=== PATIENT | female | born 1975 ===

== ENCOUNTER 2016-09-22 20:23 | Emergency (ER) | payer OTHER, SELFPAY ==
[2016-09-22 20:23] VITALS: BMI 30.2
[2016-09-22 20:43] VITALS: PULSE 62; RESP 18; TEMP 97.9; O2SAT 99
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
[2016-09-22 22:56] VITALS: BP 141/85
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
== END 2016-09-22 22:55 | disposition home or self-care (01) ==
LOC: H.ER 20:23
DX: M79.601 Pain in right arm (principal); V03.10XA Pedestrian on foot injured in collision with car, pick-up truck or van in traffic accident, initial encounter; Y92.410 Unspecified street and highway as the place of occurrence of the external cause

== ENCOUNTER 2016-11-25 03:58 | Observation (INO) | payer OTHER, SELFPAY ==
[2016-11-25 03:58] VITALS: BMI 30.2
[2016-11-25] MEDS ORDERED: Sodium Chloride 0.9% 1,000 ML IV STA (04:12)
[2016-11-25 04:24] LABS: BASO # 0.1 K/uL (0.0-0.2); BASO % 0.6 % (0.0-2.0); EOS # 0.2 K/uL (0.0-0.7); EOS % 1.2 % (0.0-4.0); HEMATOCRIT 37.5 % (34.0-47.0); LYMPH # 3.7 K/uL (1.0-4.3); LYMPH % 28.4 % (20.0-40.0); MEAN CELL VOLUME 91.5 fl (81.0-99.0); MEAN CORPUSCULAR HEMOGLOBIN 30.8 pg (27.0-31.0); MEAN CORPUSCULAR HGB CONC 33.7 g/dL (33.0-37.0); MEAN PLATELET VOLUME 7.8 fl (7.2-11.7); MONO # 0.9 K/uL (0.0-0.8); MONO % 6.9 % (0.0-10.0); NEUT # 8.2 K/uL (1.8-7.0); NEUT % 62.9 % (50.0-75.0); RED CELL DISTRIBUTION WIDTH 13.1 % (11.5-14.5)
--- NOTE | 2016-11-25 04:26 | ED PDOC ---
HPI: Abdomen Time Seen by Provider: 11/25/16 04:03 Chief Complaint (Nursing): Abdominal Pain Chief Complaint (Provider): Abdominal Pain History Per: Patient History/Exam Limitations: no limitations Onset/Duration Of Symptoms: Hrs (x7) Current Symptoms Are (Timing): Still Present Location Of Pain/Discomfort: RUQ Quality Of Discomfort: Stabbing Associated Symptoms: Nausea, Vomiting. denies: Fever, Chills Additional Complaint(s): 41 year old female presents to ED with complaints of RUQ pain x9 hours and has no past medical history. (+) nausea and vomiting, (-) fever and chills. Notes that she has been having intermittent episodes of vomiting (food-colored). Describes the sensation of pain as stabbing. PCP: [facility] Past Medical History Reviewed: Historical Data, Nursing Documentation, Vital Signs Vital Signs: Last Vital Signs Temp 99.1 F 11/25/16 04:01 Pulse 101 H 11/25/16 04:01 Resp 16 11/25/16 04:01 BP 154/103 H 11/25/16 04:01 Pulse Ox 99 11/25/16 04:28 - Medical History PMH: Back Problems Denies: Chronic Kidney Disease - Surgical History Surgical History: (x3) - Family History Family History: States: Unknown Family Hx - Living Arrangements Living Arrangements: With Family - Social History Current smoker - smoking cessation education provided: No Ex-Smoker (has not smoked in the last 12 months): No Alcohol: None Drugs: Denies - Immunization History Hx Influenza Vaccination: No - Home Medications Home Medications: Ambulatory Orders Medication Instructions Recorded oxyCODONE/Acetaminophen [Percocet 1 ea PO Q8 #10 tab 04/03/16 5/325 mg Tab] Ibuprofen [Motrin Tab] 800 mg PO Q6H PRN #20 tab 09/22/16 traMADol [Ultram] 50 mg PO Q6H PRN #15 tab 09/22/16 - Allergies Allergies/Adverse Reactions: Allergies Allergy/AdvReac Type Severity Reaction Status Date / Time No Known Allergies Allergy Verified 10/29/15 13:43 Review of Systems ROS Statement: Except As Marked, All Systems Reviewed And Found Negative Constitutional: Negative for: Fever, Chills Gastrointestinal: Positive for: Nausea, Vomiting, Abdominal Pain (RUQ) Physical Exam - Reviewed Nursing Documentation Reviewed: Yes Vital Signs Reviewed: Yes - Physical Exam Appears: Positive for: Uncomfortable Skin: Positive for: Normal Color, Warm, Dry Eye Exam: Positive for: Normal appearance ENT: Positive for: Normal ENT Inspection Neck: Positive for: Normal Cardiovascular/Chest: Positive for: Regular Rate, Rhythm, Tachycardia Respiratory: Positive for: Normal Breath Sounds. Negative for: Respiratory Distress Gastrointestinal/Abdominal: Positive for: Soft, Tenderness (RUQ tenderness), Other ((+) Jewell's sign) Extremity: Positive for: Normal ROM. Negative for: Deformity Neurologic/Psych: Positive for: Alert, Oriented. Negative for: Motor/Sensory Deficits - Laboratory Results Result Diagrams: 11/25/16 04:22 11/25/16 04:22 - ECG O2 Sat by Pulse Oximetry: 99 (RA) Pulse Ox Interpretation: Normal Medical Decision Making Medical Decision Makin Initial impression: gallstone v cholecystitis v nephrolithiasis Initial plan: * Labs * Lipase * LFT * UPreg * UDip * Morphine 4mg IVP * NS IV * Zofran Inj 4mg IVP * UA * Re-eval Scribe Attestation: Documented by Kelsea Robles acting as a scribe for Greg Chang MD. Scribe Attestation: All medical record entries made by the Scribe were at my direction and personally dictated by me. I have reviewed the chart and agree that the record accurately reflects my personal performance of the history, physical exam, medical decision making, and the department course for this patient. I have also personally directed, reviewed, and agree with the discharge instructions and disposition. Disposition - Clinical Impression Clinical Impression: Abdominal pain - Patient ED Disposition Is Patient to be Admitted: Transfer of Care - Disposition Disposition: Transfer of Care Disposition Time: 07:00 Condition: STABLE Forms: xCloud (Albanian) Patient Signed Over To: Caity Romo Handoff Comments: pending U/S
[2016-11-25 04:51] LABS: BLOOD UREA NITROGEN 15 mg/dl (7-17); CARBON DIOXIDE 25 mmol/L (22-30); CHLORIDE 105 mmol/L (98-107); GFR AFRICAN-AMERICAN > 60; GLUCOSE,RANDOM 115 mg/dL (65-105); POTASSIUM 4.5 MMOL/L (3.6-5.0); SODIUM 139 mmol/l (132-148)
[2016-11-25 04:52] LABS: ALB/GLOB RATIO 1.3 (1.0-2.1); ALT/SGPT 53 U/L (9-52); AST/SGOT 34 U/L (14-36); BILIRUBIN,TOTAL 0.6 mg/dl (0.2-1.3); CALCIUM 9.1 mg/dL (8.4-10.2); TOTAL PROTEIN 7.8 G/DL (6.3-8.2)
[2016-11-25 04:53] LABS: ALKALINE PHOSPHATASE 86 U/L (38-126); LIPASE 166 U/L (23-300)
[2016-11-25] MEDS ORDERED: Iohexol 300 100 ML IJ ONE (05:39)
[2016-11-25] MEDS ORDERED: Sodium Chloride 0.9% 50 ML IV ONE (05:39)
--- NOTE | 2016-11-25 06:46 | CT ---
EXAM: CT Abdomen and Pelvis With Intravenous Contrast CLINICAL HISTORY: 41 years old, female; Pain; Abdominal pain; Localized; Right upper quadrant (ruq); Prior surgery; Surgery date: 6+ months; Surgery type: x 3; Additional info: Ruq pain TECHNIQUE: Axial computed tomography images of the abdomen and pelvis with intravenous contrast. All CT scans at this facility use one or more dose reduction techniques, viz.: automated exposure control; ma/kV adjustment per patient size (including targeted exams where dose is matched to indication; i.e. head); or iterative reconstruction technique. Coronal and sagittal reformatted images were created and reviewed. CONTRAST: 90 mL of [id number] administered intravenously. COMPARISON: CT - ABD PELVIS PO IV CONTRAST 05/13/2015 11:18:30 AM FINDINGS: Lower thorax: No acute findings. ABDOMEN: Liver: Unremarkable. No mass. Gallbladder and bile ducts: Unremarkable. No calcified stones. No ductal dilation. Pancreas: Unremarkable. No mass. No ductal dilation. Spleen: Unremarkable. No splenomegaly. Adrenals: Unremarkable. No mass. Kidneys and ureters: Unremarkable. No solid mass. No hydronephrosis. Stomach and bowel: There is no wall thickening or pericolonic stranding to suggest colitis. No obstruction. Appendix: A normal appendix is identified. PELVIS: Bladder: Unremarkable. No mass. Reproductive: Unremarkable as visualized. ABDOMEN and PELVIS: Intraperitoneal space: Unremarkable. No free air. No significant fluid collection. Bones/joints: No acute fracture. No dislocation. Soft tissues: Unremarkable. Vasculature: Unremarkable. No abdominal aortic aneurysm. Lymph nodes: Unremarkable. No enlarged lymph nodes. IMPRESSION: No acute findings.
--- NOTE | 2016-11-25 07:12 | ED PDOC ---
- Laboratory Results Result Diagrams: 11/25/16 04:22 11/25/16 04:22 - ECG O2 Sat by Pulse Oximetry: 99 (RA) Medical Decision Making Medical Decision Making: Received patient from Dr. Chang. Patient is pending abdominal US for RUQ colic 09:07 US gallbladder FINDINGS: LIVER: Measures 17.5 cm in length. Diffusely increased echogenicity of the liver parenchyma. Consistent with fatty infiltration. There is a rounded hypoechoic lesion in the right lobe of the liver, 1.9 x 1.9 x 2.2 cm. The borders are slightly irregular. This corresponds to a 2 cm rounded enhancing mass in the right hepatic lobe as seen on multiple prior MR examinations as well as CT examination dating back to 05/13/2015. No interval change in size. Low suspicion for malignancy but continued surveillance is advised. No other mass identified. No biliary ductal dilatation. This could represent focal fatty sparing but the possibility of a hepatic neoplasm must also be considered. Normal hepatopetal portal venous flow is demonstrated. GALLBLADDER: Unremarkable. No gallstones. COMMON BILE DUCT: Measures 7 mm. No stones. No dilatation. PANCREAS: Unremarkable as visualized. No mass. No ductal dilatation. OTHER FINDINGS: None . IMPRESSION: Fatty infiltration of the liver. 2 cm rounded mass in the right hepatic lobe unchanged compared to multiple prior MR and CT examinations dating back to 2015. Continued surveillance is advised. No evidence of cholelithiasis or cholecystitis. ----- Scribe Attestation: Documented by Justine Galo acting as a scribe for Caity Romo MD. Scribe Attestation: All medical record entries made by the Scribe were at my direction and personally dictated by me. I have reviewed the chart and agree that the record accurately reflects my personal performance of the history, physical exam, medical decision making, and the department course for this patient. I have also personally directed, reviewed, and agree with the discharge instructions and disposition. 9.15A Patient in severe pain again. US and CT unrevealing of acute process. Will medicate and obtain surgical consult. Disposition Doctor Will See Patient In The: Hospital - Clinical Impression Clinical Impression: Abdominal pain - POA Present On Arrival: None - Disposition Disposition: Hospitalized as Observation Patient Disposition Time: 11:15 Condition: STABLE
[2016-11-25 08:24] LABS: RBC URINE 3 /hpf (0-3); URINE BACTERIA RARE (<OCC); URINE BILIRUBIN NEGATIVE (NEGATIVE); URINE BLOOD NEGATIVE (NEGATIVE); URINE COLOR STRAW (YELLOW); URINE GLUCOSE (UA) NEG (Normal); URINE KETONE NEGATIVE (NEGATIVE); URINE LEUKOCYTE ESTERASE NEG Leu/uL (Negative); URINE PROTEIN NEGATIVE (NEGATIVE); URINE UROBILINOGEN 0.2-1.0 mg/dL (0.2-1.0); WBC URINE 2 /hpf (0-5)
--- NOTE | 2016-11-25 09:08 | US ---
HISTORY: RUQ pain COMPARISON: None. TECHNIQUE: Sonographic evaluation of the right upper quadrant of the abdomen. FINDINGS: LIVER: Measures 17.5 cm in length. Diffusely increased echogenicity of the liver parenchyma. Consistent with fatty infiltration. There is a rounded hypoechoic lesion in the right lobe of the liver, 1.9 x 1.9 x 2.2 cm. The borders are slightly irregular. This corresponds to a 2 cm rounded enhancing mass in the right hepatic lobe as seen on multiple prior MR examinations as well as CT examination dating back to 05/13/2015. No interval change in size. Low suspicion for malignancy but continued surveillance is advised. No other mass identified. No biliary ductal dilatation. This could represent focal fatty sparing but the possibility of a hepatic neoplasm must also be considered. Normal hepatopetal portal venous flow is demonstrated. GALLBLADDER: Unremarkable. No gallstones. COMMON BILE DUCT: Measures 7 mm. No stones. No dilatation. PANCREAS: Unremarkable as visualized. No mass. No ductal dilatation. OTHER FINDINGS: None . IMPRESSION: Fatty infiltration of the liver. 2 cm rounded mass in the right hepatic lobe unchanged compared to multiple prior MR and CT examinations dating back to 05/13/2015. Continued surveillance is advised. No evidence of cholelithiasis or cholecystitis.
--- NOTE | 2016-11-25 10:07 | CP.PCM.CON ---
<Ole Martinez - Last Filed: 11/25/16 11:17> History of Present Illness - History of Present Illness History of Present Illness: General Surgery Consult note CC: RUQ pain 41F no relevant PMH presented to [facility] with sharp continuos RUQ pain that started late last night. had a similar episode 3 days ago that resolved on its own. Pain is slightly better after morphine in the ED. Currently ranks pain 8/ 10. Pt feels distended. Pt positive for nausea, NBNB vomiting, multiple episodes non-bloody diarrhea. Denies current CP/SOB F/C BRBPR, numbness tingling in the extremities LMP: earlier this month PMH: pre-diabetic PSH: x2 ALL: NKDA SocialHx: occasional ETOH, denies tobacco, or drug use Review of Systems - Review of Systems All systems: reviewed and no additional remarkable complaints except - Constitutional Constitutional: As Per HPI Past Patient History - Past Medical History & Family History Past Medical History?: No - Past Social History Alcohol: None Drugs: Denies - PULMONARY Hx Respiratory Disorders: No - NEUROLOGICAL Hx Neurological Disorder: No - HEENT Hx HEENT Problems: No - RENAL Hx Chronic Kidney Disease: No - ENDOCRINE/METABOLIC Hx Endocrine Disorders: No - HEMATOLOGICAL/ONCOLOGICAL Hx Blood Disorders: No - INTEGUMENTARY Hx Dermatological Problems: No - MUSCULOSKELETAL/RHEUMATOLOGICAL Hx Musculoskeletal Disorders: No - GASTROINTESTINAL Hx Gastrointestinal Disorders: No - GENITOURINARY/GYNECOLOGICAL Hx Genitourinary Disorders: No - PSYCHIATRIC Hx Psychophysiologic Disorder: No Hx Substance Use: No - SURGICAL HISTORY Hx Surgeries: Yes Hx Section: Yes (x3) Other/Comment: ovarian cyst removal - ANESTHESIA Hx Anesthesia: Yes Hx Anesthesia Reactions: No Meds Allergies/Adverse Reactions: Allergies Allergy/AdvReac Type Severity Reaction Status Date / Time No Known Allergies Allergy Verified 10/29/15 13:43 Physical Exam - Constitutional Appears: Non-toxic, No Acute Distress - Head Exam Head Exam: ATRAUMATIC - Eye Exam Eye Exam: EOMI. absent: Scleral icterus - ENT Exam ENT Exam: Mucous Membranes Moist - Respiratory Exam Respiratory Exam: NORMAL BREATHING PATTERN. absent: Accessory Muscle Use, Respiratory Distress - Cardiovascular Exam Cardiovascular Exam: Tachycardia, +S1, +S2 - GI/Abdominal Exam GI & Abdominal Exam: Distended, Normal Bowel Sounds, Soft, Tenderness - Extremities Exam Extremities exam: Negative for: calf tenderness - Back Exam Back exam: absent: CVA tenderness (L), CVA tenderness (R) - Neurological Exam Neurological exam: Alert, Oriented x3 - Skin Skin Exam: Dry, Warm Results - Vital Signs Recent Vital Signs: Last Vital Signs Temp 98.1 F 11/25/16 07:59 Pulse 56 L 11/25/16 07:59 Resp 16 11/25/16 07:59 BP 107/62 11/25/16 07:59 Pulse Ox 99 11/25/16 09:27 - Labs Result Diagrams: 11/25/16 04:22 11/25/16 04:22 Labs: Laboratory Results - last 24 hr 11/25/16 11/25/16 11/25/16 04:22 04:22 08:02 WBC 13.0 H D RBC 4.10 Hgb 12.6 Hct 37.5 MCV 91.5 D MCH 30.8 MCHC 33.7 RDW 13.1 Plt Count 298 MPV 7.8 Neut % (Auto) 62.9 Lymph % (Auto) 28.4 Barry % (Auto) 6.9 Eos % (Auto) 1.2 Baso % (Auto) 0.6 Neut # 8.2 H Lymph # 3.7 Barry # 0.9 H Eos # 0.2 Baso # 0.1 Sodium 139 Potassium 4.5 Chloride 105 Carbon Dioxide 25 Anion Gap 14 BUN 15 Creatinine 0.7 Est GFR ( Amer) > 60 Est GFR (Non-Af Amer) > 60 Random Glucose 115 H Calcium 9.1 Total Bilirubin 0.6 Direct Bilirubin 0.4 AST 34 ALT 53 H Alkaline Phosphatase 86 Total Protein 7.8 Albumin 4.4 Globulin 3.4 Albumin/Globulin Ratio 1.3 Lipase 166 Urine Color Straw Urine Clarity Cloudy Urine pH 6.0 Ur Specific [place] 1.023 Urine Protein Negative Urine Glucose (UA) Neg Urine Ketones Negative Urine Blood Negative Urine Nitrate Negative Urine Bilirubin Negative Urine Urobilinogen 0.2-1.0 Ur Leukocyte Esterase Neg Urine RBC (Auto) 3 Urine Microscopic WBC 2 Ur Squamous Epith Cells 9 H Urine Bacteria Rare Assessment & Plan - Assessment and Plan (Free Text) Assessment: 41F Abdominal pain over the last day Plan: - NPO - IVF - pain control - clinically no signs of acute cholecystitis, most likely gastroenteritis - will follow Pt S&E and d/w Surgical attending Ole Martinez PGY1 <Zi Kwong - Last Filed: 11/25/16 11:24> History of Present Illness - History of Present Illness History of Present Illness: Patient was seen and examined at the bedside. Agree with resident's note above. Physical Exam - GI/Abdominal Exam GI & Abdominal Exam: Distended Additional comments: tender on the right side, ND, BS+, no rebound, no guarding, well healed scar from prior Results - Vital Signs Recent Vital Signs: Last Vital Signs Temp 98.1 F 11/25/16 07:59 Pulse 56 L 11/25/16 07:59 Resp 16 11/25/16 07:59 BP 107/62 11/25/16 07:59 Pulse Ox 99 11/25/16 09:27 - Labs Result Diagrams: 11/25/16 04:22 11/25/16 04:22 Labs: Laboratory Results - last 24 hr 11/25/16 11/25/16 11/25/16 04:22 04:22 08:02 WBC 13.0 H D RBC 4.10 Hgb 12.6 Hct 37.5 MCV 91.5 D MCH 30.8 MCHC 33.7 RDW 13.1 Plt Count 298 MPV 7.8 Neut % (Auto) 62.9 Lymph % (Auto) 28.4 Barry % (Auto) 6.9 Eos % (Auto) 1.2 Baso % (Auto) 0.6 Neut # 8.2 H Lymph # 3.7 Barry # 0.9 H Eos # 0.2 Baso # 0.1 Sodium 139 Potassium 4.5 Chloride 105 Carbon Dioxide 25 Anion Gap 14 BUN 15 Creatinine 0.7 Est GFR ( Amer) > 60 Est GFR (Non-Af Amer) > 60 Random Glucose 115 H Calcium 9.1 Total Bilirubin 0.6 Direct Bilirubin 0.4 AST 34 ALT 53 H Alkaline Phosphatase 86 Total Protein 7.8 Albumin 4.4 Globulin 3.4 Albumin/Globulin Ratio 1.3 Lipase 166 Urine Color Straw Urine Clarity Cloudy Urine pH 6.0 Ur Specific [place] 1.023 Urine Protein Negative Urine Glucose (UA) Neg Urine Ketones Negative Urine Blood Negative Urine Nitrate Negative Urine Bilirubin Negative Urine Urobilinogen 0.2-1.0 Ur Leukocyte Esterase Neg Urine RBC (Auto) 3 Urine Microscopic WBC 2 Ur Squamous Epith Cells 9 H Urine Bacteria Rare - Imaging and Cardiology CT scan - abdomen Status: Image reviewed by me, Report reviewed by me
[2016-11-25] MEDS: Lactated Ringer's 1,000 ML IV SCH (12:32)
--- NOTE | 2016-11-25 13:32 | CP.PCM.HP ---
History of Present Illness - History of Present Illness History of Present Illness: 41yo F with PMHx hepatic lesion admitted for intractable RUQ abd pain. RUQ abd pain x2 days, sharp, constant, 8/10, radiation to back, a/w nausea and NB/NB vomitus x4 over 1 day, a/w diarrhea x4 today improving. LMP 10/2016. PMH: pre-diabetic, hepatic lesion and fibrolipoma PSH: x2, abd wall mass 05/30/15 ALL: NKDA Social Hx: denies tobacco, ETOH, or drug use PMD: [facility] ED course VSS CBC leukocytosis neg urine preg lipase WNL CT abd/pelvis-unremarkable, no abnl GB findings US abd-fatty infiltration. unchanged/stable 2cm right hepatic lobe mass. no cholelithiasis or cholecysitis surgery c/s Present on Admission - Present on Admission Any Indicators Present on Admission: No Review of Systems - Review of Systems All systems: reviewed and no additional remarkable complaints except - Gastrointestinal Gastrointestinal: Abdominal Pain, Diarrhea, Nausea, Vomiting Past Patient History - Past Medical History & Family History Past Medical History?: No - Past Social History Alcohol: None Drugs: Denies - PULMONARY Hx Respiratory Disorders: No - NEUROLOGICAL Hx Neurological Disorder: No - HEENT Hx HEENT Problems: No - RENAL Hx Chronic Kidney Disease: No - ENDOCRINE/METABOLIC Hx Endocrine Disorders: No - HEMATOLOGICAL/ONCOLOGICAL Hx Blood Disorders: No - INTEGUMENTARY Hx Dermatological Problems: No - MUSCULOSKELETAL/RHEUMATOLOGICAL Hx Musculoskeletal Disorders: No - GASTROINTESTINAL Hx Gastrointestinal Disorders: No - GENITOURINARY/GYNECOLOGICAL Hx Genitourinary Disorders: No - PSYCHIATRIC Hx Psychophysiologic Disorder: No Hx Substance Use: No - SURGICAL HISTORY Hx Surgeries: Yes Hx Section: Yes (x3) Other/Comment: ovarian cyst removal - ANESTHESIA Hx Anesthesia: Yes Hx Anesthesia Reactions: No Meds Allergies/Adverse Reactions: Allergies Allergy/AdvReac Type Severity Reaction Status Date / Time No Known Allergies Allergy Verified 11/25/16 15:10 Physical Exam - Constitutional Appears: Non-toxic, No Acute Distress - Head Exam Head Exam: ATRAUMATIC, NORMAL INSPECTION - Eye Exam Eye Exam: Normal appearance - ENT Exam ENT Exam: Mucous Membranes Moist - Neck Exam Neck exam: Positive for: Full Rom, Normal Inspection - Respiratory Exam Respiratory Exam: Clear to Auscultation Bilateral - Cardiovascular Exam Cardiovascular Exam: REGULAR RHYTHM - GI/Abdominal Exam GI & Abdominal Exam: Normal Bowel Sounds, Soft, Tenderness. absent: Guarding, Mass - Extremities Exam Extremities exam: Positive for: normal inspection. Negative for: pedal edema, tenderness - Back Exam Back exam: NORMAL INSPECTION - Neurological Exam Neurological exam: Alert, Oriented x3 - Skin Skin Exam: Dry, Warm Results - Vital Signs Recent Vital Signs: Last Vital Signs Temp 98.1 F 11/25/16 07:59 Pulse 56 L 11/25/16 07:59 Resp 16 11/25/16 07:59 BP 107/62 11/25/16 07:59 Pulse Ox 99 11/25/16 11:51 - Labs Result Diagrams: 11/25/16 04:22 11/25/16 04:22 Labs: Laboratory Results - last 24 hr 11/25/16 11/25/16 11/25/16 04:22 04:22 08:02 WBC 13.0 H D RBC 4.10 Hgb 12.6 Hct 37.5 MCV 91.5 D MCH 30.8 MCHC 33.7 RDW 13.1 Plt Count 298 MPV 7.8 Neut % (Auto) 62.9 Lymph % (Auto) 28.4 [place] % (Auto) 6.9 Eos % (Auto) 1.2 Baso % (Auto) 0.6 Neut # 8.2 H Lymph # 3.7 [place] # 0.9 H Eos # 0.2 Baso # 0.1 Sodium 139 Potassium 4.5 Chloride 105 Carbon Dioxide 25 Anion Gap 14 BUN 15 Creatinine 0.7 Est GFR ( Amer) > 60 Est GFR (Non-Af Amer) > 60 Random Glucose 115 H Calcium 9.1 Total Bilirubin 0.6 Direct Bilirubin 0.4 AST 34 ALT 53 H Alkaline Phosphatase 86 Total Protein 7.8 Albumin 4.4 Globulin 3.4 Albumin/Globulin Ratio 1.3 Lipase 166 Urine Color Straw Urine Clarity Cloudy Urine pH 6.0 Ur Specific [place] 1.023 Urine Protein Negative Urine Glucose (UA) Neg Urine Ketones Negative Urine Blood Negative Urine Nitrate Negative Urine Bilirubin Negative Urine Urobilinogen 0.2-1.0 Ur Leukocyte Esterase Neg Urine RBC (Auto) 3 Urine Microscopic WBC 2 Ur Squamous Epith Cells 9 H Urine Bacteria Rare Assessment & Plan - Assessment and Plan (Free Text) Assessment: 41yo F with PMHx hepatic lesion and abd wall mass admitted for intractable RUQ abd pain. RUQ abd pain -DDx biliary colic -VSS, afebrile, leukocytosis -AST/ALT 34/53, Alk Phos 86, Bilirubin 0.6 -CT abd/pelvis-unremarkable, no abnl GB findings -US abd-fatty infiltration. unchanged/stable 2cm right hepatic lobe mass. no cholelithiasis or cholecysitis -NPO -IVF -pain control -surgery on board fatty liver -lipid panel -FU GI outpt DVT ppx -SCDs -no pharmalogical agents given age, no significant comorbidities, pending surgical intervention and/or observation Dispo: d/c home if no acute surgical intervention, abd pain improved, tolerating PO Decision To Admit - Pt Status Changed To: Hospital Disposition Of: Observation - . Bed Request Type: Med/Surg Admitting Physician: Maru Bustillos
[2016-11-25] MEDS ORDERED: metroNIDAZOLE 500mg/100ml NS 100 ML IVPB SCH (17:00)
[2016-11-25] MEDS ORDERED: Ciprofloxacin 400mg/200ml D5W 400 MG/200 ML BAG IVPB SCH (17:00)
[2016-11-25] MEDS: Ciprofloxacin 400mg/200ml D5W 400 MG/200 ML BAG IVPB SCH (18:46)
[2016-11-25] MEDS: metroNIDAZOLE 500mg/100ml NS 100 ML IVPB SCH (20:21)
[2016-11-26] MEDS: Ciprofloxacin 400mg/200ml D5W 400 MG/200 ML BAG IVPB SCH ×2 (03:17→10:15)
[2016-11-26] MEDS: Lactated Ringer's 1,000 ML IV SCH ×2 (03:21→10:14)
[2016-11-26] MEDS: metroNIDAZOLE 500mg/100ml NS 100 ML IVPB SCH (03:41)
[2016-11-26 07:43] LABS: HEMATOCRIT 37.9 % (34.0-47.0); MEAN CELL VOLUME 93.2 fl (81.0-99.0); MEAN CORPUSCULAR HGB CONC 33.3 g/dL (33.0-37.0); RED CELL DISTRIBUTION WIDTH 13.1 % (11.5-14.5); WHITE BLOOD COUNT 9.3 K/uL (4.8-10.8)
[2016-11-26 07:46] VITALS: BP 105/53; PULSE 63; RESP 16; TEMP 98.6; O2SAT 99
[2016-11-26 08:20] LABS: ALB/GLOB RATIO 1.5 (1.0-2.1); ALKALINE PHOSPHATASE 79 U/L (38-126); ALT/SGPT 44 U/L (9-52); AST/SGOT 30 U/L (14-36); BLOOD UREA NITROGEN 10 mg/dl (7-17); CALCIUM 9.3 mg/dL (8.4-10.2); CARBON DIOXIDE 23 mmol/L (22-30); CHLORIDE 103 mmol/L (98-107); CHOLESTEROL 212 mg/dL (0-199); GFR AFRICAN-AMERICAN > 60; GLUCOSE,RANDOM 98 mg/dL (65-105); POTASSIUM 4.5 MMOL/L (3.6-5.0); SODIUM 139 mmol/l (132-148); TOTAL PROTEIN 6.7 G/DL (6.3-8.2)
[2016-11-26] MEDS ORDERED: guaiFENesin DM 200 mg-20 mg/10 ml UD PO PRN (08:46)
--- NOTE | 2016-11-26 08:54 | CP.PCM.PN ---
Subjective - Date & Time of Evaluation Date of Evaluation: 11/26/16 Time of Evaluation: 08:40 Objective - Vital Signs/Intake and Output Vital Signs (last 24 hours): Temp Pulse Resp BP Pulse Ox 98.6 F 63 16 105/53 L 99 11/26/16 07:45 11/26/16 07:45 11/26/16 07:45 11/26/16 07:45 11/26/16 07:45 Intake and Output: 11/26/16 11/26/16 06:59 18:59 Intake Total 1720 Balance 1720 - Medications Medications: Current Medications Guaifenesin/Dextromethorphan (Robitussin Dm) 15 ml PO Q6 PRN PRN Reason: Cough Hydromorphone HCl (Dilaudid) 0.5 mg IVP Q6 PRN PRN Reason: Pain, moderate (4-7) Hydromorphone HCl (Dilaudid) 1 mg IVP Q6 PRN PRN Reason: Pain, severe (8-10) Last Admin: 11/25/16 16:50 Dose: 1 mg Lactated Ringer's (Lactated Ringer's) 1,000 mls @ 110 mls/hr IV .Q9H6M [facility] Last Admin: 11/26/16 03:21 Dose: 110 mls/hr Ciprofloxacin (Cipro 400mg/200ml Dsw) 400 mg in 200 mls @ 200 mls/hr IVPB Q8@ 0300,1100,1900 [facility] Last Admin: 11/26/16 03:17 Dose: 200 mls/hr Metronidazole (Flagyl 500mg/100ml Ns) 100 mls @ 100 mls/hr IVPB Q8@0400,1200, 2000 [facility] Last Admin: 11/26/16 03:41 Dose: 100 mls/hr Ibuprofen (Motrin Tab) 600 mg PO Q6 PRN PRN Reason: Pain, Mild (1-3) Last Admin: 11/26/16 03:38 Dose: 600 mg Ondansetron HCl (Zofran Inj) 4 mg IVP Q6 PRN PRN Reason: Nausea/Vomiting - Labs Labs: 11/26/16 07:15 11/26/16 07:15 PT 11.2 Seconds (9.8-13.1) 11/26/16 07:15 INR 1.1 (0.9-1.2) 11/26/16 07:15 APTT 27.0 Seconds (25.6-37.1) 11/26/16 07:15
[2016-11-26] MEDS ORDERED: Oxycodone/Acetaminophen 5/325 mg Tab PO PRN (11:30)
--- NOTE | 2016-11-26 11:37 | CP.PCM.PN ---
Subjective - Date & Time of Evaluation Date of Evaluation: 11/26/16 Time of Evaluation: 10:30 - Subjective Subjective: General Surgery- Dr. Bhatt Pt S&E at bedside this AM. No acute events overnight. Pain is significantly better than yesterday. +OOB, tolerating current diet. Denies recent N/V/D CP/SOB Objective - Vital Signs/Intake and Output Vital Signs (last 24 hours): Temp Pulse Resp BP Pulse Ox 98.6 F 63 16 105/53 L 99 11/26/16 07:45 11/26/16 07:45 11/26/16 07:45 11/26/16 07:45 11/26/16 07:45 Intake and Output: 11/26/16 11/26/16 06:59 18:59 Intake Total 1720 Balance 1720 - Medications Medications: Current Medications Guaifenesin/Dextromethorphan (Robitussin Dm) 15 ml PO Q6 PRN PRN Reason: Cough Last Admin: 11/26/16 10:42 Dose: 15 ml Lactated Ringer's (Lactated Ringer's) 1,000 mls @ 110 mls/hr IV .Q9H6M [facility] Last Admin: 11/26/16 10:14 Dose: 110 mls/hr Ciprofloxacin (Cipro 400mg/200ml Dsw) 400 mg in 200 mls @ 200 mls/hr IVPB Q8@ 0300,1100,1900 [facility] Last Admin: 11/26/16 10:15 Dose: 200 mls/hr Ibuprofen (Motrin Tab) 600 mg PO Q6 PRN PRN Reason: Pain, Mild (1-3) Last Admin: 11/26/16 10:26 Dose: 600 mg Metronidazole (Flagyl) 500 mg PO Q8 [facility] Ondansetron HCl (Zofran Inj) 4 mg IVP Q6 PRN PRN Reason: Nausea/Vomiting Oxycodone/Acetaminophen (Percocet 5/325 Mg Tab) 1 tab PO Q6 PRN PRN Reason: Pain, severe (8-10) Stop: 11/29/16 11:31 Tramadol HCl (Ultram) 50 mg PO Q6 PRN PRN Reason: Pain, moderate (4-7) - Labs Labs: 11/26/16 07:15 11/26/16 07:15 PT 11.2 Seconds (9.8-13.1) 11/26/16 07:15 INR 1.1 (0.9-1.2) 11/26/16 07:15 APTT 27.0 Seconds (25.6-37.1) 11/26/16 07:15 - Constitutional Appears: Non-toxic, No Acute Distress - Head Exam Head Exam: ATRAUMATIC - Eye Exam Eye Exam: EOMI. absent: Scleral icterus - ENT Exam ENT Exam: Mucous Membranes Moist - Neck Exam Neck Exam: Normal Inspection. absent: Tenderness - Respiratory Exam Respiratory Exam: NORMAL BREATHING PATTERN. absent: Accessory Muscle Use, Respiratory Distress - Cardiovascular Exam Cardiovascular Exam: +S1, +S2. absent: Bradycardia, Tachycardia - GI/Abdominal Exam GI & Abdominal Exam: Soft, Tenderness. absent: Distended, Firm, Guarding, Rigid - Neurological Exam Neurological Exam: Alert, Awake, Oriented x3 - Skin Skin Exam: Normal Color, Warm Assessment and Plan - Assessment and Plan (Free Text) Assessment: 41F w/ RUQ abdominal pain most likely 2/2 gastroenteritis Plan: continue regular diet Cipro/flagyl serial abdominal exams no surgical intervention at thsi time tolerating regular diet cleared for discharge from surgical standpoint Ole Martinez PGY1
--- NOTE | 2016-11-26 11:54 | CP.PCM.DIS ---
Provider - Provider Date of Admission: 11/25/16 07:11 Attending physician: Maru Bustillos MD Primary care physician: [facility], made appointment with Dr. Russell Costa on 12/08/16 at 1:30 pm Consults: General Surgery: Dr. Bhatt Time Spent in preparation of Discharge (in minutes): 30 Diagnosis - Discharge Diagnosis (1) Gastroenteritis Status: Acute Hospital Course - Lab Results Lab Results: Most Recent Lab Values WBC 9.3 K/uL (4.8-10.8) 11/26/16 07:15 RBC 4.07 Mil/uL (3.80-5.20) 11/26/16 07:15 Hgb 12.6 g/dL (12.0-16.0) 11/26/16 07:15 Hct 37.9 % (34.0-47.0) 11/26/16 07:15 MCV 93.2 fl (81.0-99.0) 11/26/16 07:15 MCH 31.0 pg (27.0-31.0) 11/26/16 07:15 MCHC 33.3 g/dL (33.0-37.0) 11/26/16 07:15 RDW 13.1 % (11.5-14.5) 11/26/16 07:15 Plt Count 265 K/uL (130-400) 11/26/16 07:15 MPV 7.8 fl (7.2-11.7) 11/25/16 04:22 Neut % (Auto) 62.9 % (50.0-75.0) 11/25/16 04:22 Lymph % (Auto) 28.4 % (20.0-40.0) 11/25/16 04:22 [place] % (Auto) 6.9 % (0.0-10.0) 11/25/16 04:22 Eos % (Auto) 1.2 % (0.0-4.0) 11/25/16 04:22 Baso % (Auto) 0.6 % (0.0-2.0) 11/25/16 04:22 Neut # 8.2 K/uL (1.8-7.0) H 11/25/16 04:22 Lymph # 3.7 K/uL (1.0-4.3) 11/25/16 04:22 [place] # 0.9 K/uL (0.0-0.8) H 11/25/16 04:22 Eos # 0.2 K/uL (0.0-0.7) 11/25/16 04:22 Baso # 0.1 K/uL (0.0-0.2) 11/25/16 04:22 PT 11.2 Seconds (9.8-13.1) 11/26/16 07:15 INR 1.1 (0.9-1.2) 11/26/16 07:15 APTT 27.0 Seconds (25.6-37.1) 11/26/16 07:15 Sodium 139 mmol/l (132-148) 11/26/16 07:15 Potassium 4.5 MMOL/L (3.6-5.0) 11/26/16 07:15 Chloride 103 mmol/L (98-107) 11/26/16 07:15 Carbon Dioxide 23 mmol/L (22-30) 11/26/16 07:15 Anion Gap 17 (10-20) 11/26/16 07:15 BUN 10 mg/dl (7-17) 11/26/16 07:15 Creatinine 0.7 mg/dL (0.7-1.2) 11/26/16 07:15 Est GFR ( Amer) > 60 11/26/16 07:15 Est GFR (Non-Af Amer) > 60 11/26/16 07:15 Random Glucose 98 mg/dL (65-105) 11/26/16 07:15 Calcium 9.3 mg/dL (8.4-10.2) 11/26/16 07:15 Total Bilirubin 1.0 mg/dl (0.2-1.3) 11/26/16 07:15 Direct Bilirubin 0.4 mg/ml (0.0-0.4) 11/25/16 04:22 AST 30 U/L (14-36) 11/26/16 07:15 ALT 44 U/L (9-52) 11/26/16 07:15 Alkaline Phosphatase 79 U/L (38-126) 11/26/16 07:15 Total Protein 6.7 G/DL (6.3-8.2) 11/26/16 07:15 Albumin 4.0 g/dL (3.5-5.0) 11/26/16 07:15 Globulin 2.7 gm/dL (2.2-3.9) 11/26/16 07:15 Albumin/Globulin Ratio 1.5 (1.0-2.1) 11/26/16 07:15 Triglycerides 176 mg/DL (0-149) H 11/26/16 07:15 Cholesterol 212 mg/dL (0-199) H 11/26/16 07:15 LDL Cholesterol Direct 154 mg/dL (0-129) H 11/26/16 07:15 HDL Cholesterol 45 MG/DL (30-70) 11/26/16 07:15 Lipase 166 U/L (23-300) 11/25/16 04:22 Urine Color Straw (YELLOW) 11/25/16 08:02 Urine Clarity Cloudy (Clear) 11/25/16 08:02 Urine pH 6.0 (5.0-8.0) 11/25/16 08:02 Ur Specific [place] 1.023 (1.003-1.030) 11/25/16 08:02 Urine Protein Negative mg/dL (NEGATIVE) 11/25/16 08:02 Urine Glucose (UA) Neg mg/dL (Normal) 11/25/16 08:02 Urine Ketones Negative mg/dL (NEGATIVE) 11/25/16 08:02 Urine Blood Negative (NEGATIVE) 11/25/16 08:02 Urine Nitrate Negative (NEGATIVE) 11/25/16 08:02 Urine Bilirubin Negative (NEGATIVE) 11/25/16 08:02 Urine Urobilinogen 0.2-1.0 mg/dL (0.2-1.0) 11/25/16 08:02 Ur Leukocyte Esterase Neg [place]/uL (Negative) 11/25/16 08:02 Urine RBC (Auto) 3 /hpf (0-3) 11/25/16 08:02 Urine Microscopic WBC 2 /hpf (0-5) 11/25/16 08:02 Ur Squamous Epith Cells 9 /hpf (0-5) H 11/25/16 08:02 Urine Bacteria Rare (<OCC) 11/25/16 08:02 - Hospital Course Hospital Course: 41 yo female w/ PMH hepatic lesion, pre-diabetes and abdominal wall mass rection presents to [facility] ED on 9/27/17 with complaints of abdominal pain, nausea , and vomiting for several hours. CT of abdomen and pelvis showed no acute pathology; US showed 2 cm rounded mass in the right hepatic lobe unchanged from prior studies. No evidence of cholelithiasis or cholycysitis seen. Surgery was consulted and as per Dr. Bhatt no surgical intervention is needed. Pt's abdominal pain has improved; and nausea and vomiting has resolved. Pt is discharged home with flgyl 500 mg PO TID x 6 days and tramadol 50 mg PO q6h prn #10. Pt has an appointment scheduled on 12/08/16 at 1:[address] Russell Santana at [facility]. Discharge Exam - Head Exam Head Exam: ATRAUMATIC, NORMAL INSPECTION - Eye Exam Eye Exam: Normal appearance - ENT Exam ENT Exam: Mucous Membranes Moist - Neck Exam Neck exam: Normal Inspection - Respiratory Exam Respiratory Exam: Clear to PA & Lateral, NORMAL BREATHING PATTERN. absent: Rales, Rhonchi - Cardiovascular Exam Cardiovascular Exam: REGULAR RHYTHM, RRR, +S1, +S2 - GI/Abdominal Exam GI & Abdominal Exam: Normal Bowel Sounds, Soft Additional comments: minimal tenderness in RUQ, no rebound or guarding. - Extremities Exam Extremities exam: normal capillary refill, normal inspection - Neurological Exam Neurological exam: Alert, Oriented x3 - Psychiatric Exam Psychiatric exam: Normal Affect, Normal Mood - Skin Skin Exam: Normal Color Discharge Plan - Discharge Medications Prescriptions: metroNIDAZOLE [Flagyl] 500 mg PO Q8 6 Days #18 tab traMADol [Ultram] 50 mg PO Q6 PRN #10 tab PRN Reason: Pain, Moderate (4-7) - Follow Up Plan Condition: STABLE Disposition: HOME/ ROUTINE Instructions: Patient Safety in the Hospital (GEN), Acute Abdominal Pain (GEN) , How To Wash Your Hands (GEN), Fall Prevention (GEN) Additional Instructions: Follow up with Dr. Russell Costa 12/08/16 1:30PM Referrals: [facility] [Outside] Main Bhatt MD [Staff Provider] -
== END 2016-11-26 13:53 | disposition home or self-care (01) ==
LOC: H.ER 03:58 → H.EROBSV 07:11 → OBSVTOIN 11:48 → INTOOBSV 11:48 → H.ERHOLD 11:48 → H.PEDS 14:02
PROVIDERS: ADMIT Family Medicine Geriatric Medicine; ATTEND Family Medicine Geriatric Medicine
DX: K52.9 Noninfective gastroenteritis and colitis, unspecified (principal); K76.0 Fatty (change of) liver, not elsewhere classified; K76.9 Liver disease, unspecified; R73.03 Prediabetes
CPT/HCPCS: 36415; 74177; 76705; 80048; 80053; 80061; 80076; 81003; 81025; 83690; 85025; 85027; 85610; 85730; 96360; 96361; 96374; 96376; 99284; G0378; J0744; J1170; J1885; J2270; J2405; J7040; J7120; Q9967

== ENCOUNTER 2017-09-06 22:51 | Emergency (ER) | payer OTHER, SELFPAY ==
[2017-09-06 22:51] VITALS: BMI 30.2
[2017-09-06 23:00] VITALS: RESP 18; O2SAT 100
[2017-09-06] MEDS ORDERED: Sodium Chloride 0.9% 1,000 ML IV STA (23:50)
--- NOTE | 2017-09-06 23:53 | ED PDOC ---
"HPI: Abdomen Chief Complaint (Provider): abdominal pain History Per: Patient History/Exam Limitations: no limitations Onset/Duration Of Symptoms: Days (2) Current Symptoms Are (Timing): Still Present Location Of Pain/Discomfort: LUQ Associated Symptoms: Nausea, Vomiting <Monica Painting - Last Filed: 09/07/17 05:51> <Greg Chang - Last Filed: 09/07/17 06:44> Time Seen by Provider: 09/06/17 23:13 Chief Complaint (Nursing): Abdominal Pain Additional Complaint(s): 41 y/o female presents for evaluation of left upper abdominal pain x 2 days. Associated multiple nonbilious/nonbloody vomiting episodes. PAtient states she is unable to tolerate anything by mouth. Denies fever, chest pain, shortness of breath, palpitations, changes in bowel movements, urinary symptoms, recent travel, sick contacts. (Monica Painting) Past Medical History Reviewed: Historical Data, Nursing Documentation, Vital Signs - Medical History PMH: Back Problems Denies: Chronic Kidney Disease - Surgical History Surgical History: (x3) - Family History Family History: States: Unknown Family Hx - Immunization History Hx Influenza Vaccination: No <Monica Painting - Last Filed: 09/07/17 05:51> <Greg Chang - Last Filed: 09/07/17 06:44> Vital Signs: Last Vital Signs Temp 98.2 F 09/06/17 22:58 Pulse 67 09/06/17 22:58 Resp 18 09/06/17 22:58 BP 161/76 H 09/06/17 22:58 Pulse Ox 100 09/07/17 05:56 - Home Medications Home Medications: Ambulatory Orders Medication Instructions Recorded Ibuprofen [Motrin Tab] 800 mg PO Q8H PRN 11/25/16 metroNIDAZOLE [Flagyl] 500 mg PO Q8 6 Days #18 tab 11/26/16 traMADol [Ultram] 50 mg PO Q6 PRN #10 tab 11/26/16 Dicyclomine [Bentyl] 20 mg PO BID #30 tab 09/07/17 Famotidine [Pepcid] 20 mg PO BID #20 tab 09/07/17 Ondansetron [Zofran] 4 mg PO Q8H #12 tab 09/07/17 - Allergies Allergies/Adverse Reactions: Allergies Allergy/AdvReac Type Severity Reaction Status Date / Time No Known Allergies Allergy Verified 09/06/17 22:58 Review of Systems ROS Statement: Except As Marked, All Systems Reviewed And Found Negative Gastrointestinal: Positive for: Nausea, Vomiting, Abdominal Pain <Monica Painting - Last Filed: 09/07/17 05:51> Physical Exam - Reviewed Nursing Documentation Reviewed: Yes Vital Signs Reviewed: Yes - Physical Exam Appears: Positive for: Well, Non-toxic, Uncomfortable Head Exam: Positive for: ATRAUMATIC, NORMAL INSPECTION, NORMOCEPHALIC Skin: Positive for: Normal Color Eye Exam: Positive for: Normal appearance ENT: Positive for: Normal ENT Inspection Cardiovascular/Chest: Positive for: Regular Rate, Rhythm Respiratory: Positive for: Normal Breath Sounds Gastrointestinal/Abdominal: Positive for: Bowel Sounds, Soft, Tenderness (LUQ ( moderate), left flank (mild)) Back: Positive for: Normal Inspection Extremity: Positive for: Normal ROM Neurologic/Psych: Positive for: Alert, Oriented <Monica Painting - Last Filed: 09/07/17 05:51> - Laboratory Results Result Diagrams: 09/07/17 03:15 09/07/17 03:15 - ECG O2 Sat by Pulse Oximetry: 100 <Monica Painting - Last Filed: 09/07/17 05:51> - Laboratory Results Result Diagrams: 09/07/17 03:15 09/07/17 03:15 <Greg Chang - Last Filed: 09/07/17 06:44> - Progress ED Course And Treament: labs, urine, IV fluids, IV zofran, IV pepcid On re-eval, patient tolerating PO but states pain starting to return; moderate blood noted in urine (not on menses). Will order IV toradol and CT renal protocol (Monica Painting) Medical Decision Making <Monica Painting - Last Filed: 09/07/17 05:51> <Greg Chang - Last Filed: 09/07/17 06:44> Medical Decision MakinAM EXAM: CT Abdomen and Pelvis Without Intravenous Contrast CLINICAL HISTORY: 41 years old, female; Pain; Abdominal pain; Flank; Left; Prior surgery; Surgery date: 6+ months; Surgery type: ; Additional info: Left-sided pain TECHNIQUE: Axial computed tomography images of the abdomen and pelvis without intravenous contrast. All CT scans at this facility use at least one of these dose optimization techniques: automated exposure control; mA and/or kV adjustment per patient size (includes targeted exams where dose is matched to clinical indication); or iterative reconstruction. 572 images are submitted.Sagittal , axial and coronal MPR reformatted images are submitted. Axial images are submitted in soft tissue and lung windows. COMPARISON: CT - ABD PELVIS IV CONTRAST ONLY 2016-11-25 05:59 FINDINGS: Artifacts: Overlying clothing artifacts. Lung bases: There is bibasilar atelectasis. Heart: Trace pericardial thickening and/or fluid. ABDOMEN: Liver: Heterogeneous fatty liver. No new Gallbladder and bile ducts: Unremarkable. No ductal dilation. Pancreas: Unremarkable. No ductal dilation. Spleen: Unremarkable. No splenomegaly. Adrenals: Unremarkable. No mass. Kidneys and ureters: Unremarkable. No obstructing stones. No hydronephrosis. Stomach and bowel: Diverticulosis. Nonspecific colonic thickening likely due to under distention. Moderate amount of stool in the colon.There are nonspecific fluid filled stomach , small bowel loops. These findings can represent ileus versus gastroenteritis/enteritis versus slow transit versus peristalsis. PELVIS: Appendix: Normal appendix. Bladder: Bladder distention. Correlation with patient's voiding status is recommended. Reproductive: Uterus is seen. ABDOMEN and PELVIS: WINNIE GIBSON | Preliminary Radiology Report SURVEYING [employer]W [employer]ODMAN (QA) DISCREPANCY? If there is a discrepancy between the preliminary and final interpretation, please notify [facility] via [email or web address]. If you do not have access to our QA portal, call our QA team at [phone] CONFIDENTIALITY STATEMENT This report is intended only for the use of the referring physician, and only in accordance with law, If you received this in error, call [phone] Page 2 of 2 Intraperitoneal space: Unremarkable. No free air. No significant fluid collection. Bones/joints: No acute fracture. No dislocation. Soft tissues: Unremarkable. Vasculature: Phleboliths. No abdominal aortic aneurysm. Lymph nodes: Unremarkable. No enlarged lymph nodes. IMPRESSION: 1.There are nonspecific fluid filled stomach, small bowel loops. These findings can represent ileus versus gastroenteritis/enteritis versus slow transit versus peristalsis. Thank you for allowing us to participate in the care of your patient. Dictated and Authenticated by: Frannie Fernandez MD 09/07/2017 6:40 AM Eastern Time ([place] & [place]) Patient reports improvement in symptoms. Will prescribe zofran and bentyl. Advised patient to followup in clinic in 2 - 3 days for checkup, return precautions given. Patient well appearing upon discharge. (Greg Chang) Disposition - Disposition Disposition Time: 06:00 Patient Signed Over To: Greg Chang Handoff Comments: pending CT <Monica Painting - Last Filed: 09/07/17 05:51> - Disposition Disposition: Routine/Home Disposition Time: 06:44 <Greg Chang - Last Filed: 09/07/17 06:44> - Clinical Impression Clinical Impression: Gastroenteritis - Disposition Referrals: LT[facility] [Outside] Condition: IMPROVED Prescriptions: Dicyclomine [Bentyl] 20 mg PO BID #30 tab Famotidine [Pepcid] 20 mg PO BID #20 tab Ondansetron [Zofran] 4 mg PO Q8H #12 tab Instructions: Viral Gastroenteritis, Adult (DC) Forms: [employer] ([place]e)"
[2017-09-07 03:29] LABS: BASO # 0.1 K/uL (0.0-0.2); BASO % 0.6 % (0.0-2.0); EOS # 0.1 K/uL (0.0-0.7); EOS % 0.9 % (0.0-4.0); LYMPH # 2.7 K/uL (1.0-4.3); LYMPH % 35.2 % (20.0-40.0); MEAN CELL VOLUME 92.8 fl (81.0-99.0); MEAN CORPUSCULAR HGB CONC 34.5 g/dL (33.0-37.0); MEAN PLATELET VOLUME 8.8 fl (7.2-11.7); MONO # 0.6 K/uL (0.0-0.8); MONO % 8.2 % (0.0-10.0); NEUT # 4.3 K/uL (1.8-7.0); NEUT % 55.1 % (50.0-75.0); NRBC % 0.2 % (0.0-0.0); RBC 3.75 Mil/uL (3.80-5.20); WHITE BLOOD COUNT 7.8 K/uL (4.8-10.8)
[2017-09-07 03:33] LABS: ALB/GLOB RATIO 1.4 (1.0-2.1); ALBUMIN 4.2 g/dL (3.5-5.0); ALT/SGPT 34 U/L (9-52); AST/SGOT 34 U/L (14-36); BLOOD UREA NITROGEN 13 mg/dl (7-17); CALCIUM 8.5 mg/dL (8.4-10.2); GFR NON-AFRICAN AMERICAN > 60; LIPASE 116 U/L (23-300)
[2017-09-07 04:36] LABS: SQUAMOUS EPITHIAL 2 /hpf (0-5); URINE BILIRUBIN NEGATIVE (NEGATIVE); URINE BLOOD MODERATE (NEGATIVE); URINE CLARITY SLIGHTY-CLOUDY (Clear); URINE COLOR YELLOW (YELLOW); URINE GLUCOSE (UA) NEG (Normal); URINE LEUKOCYTE ESTERASE NEG Leu/uL (Negative); URINE PROTEIN NEGATIVE (NEGATIVE); URINE UROBILINOGEN 0.2-1.0 mg/dL (0.2-1.0)
[2017-09-07 07:46] VITALS: BP 142/82; PULSE 78; TEMP 98.6
--- NOTE | 2017-09-07 10:40 | CT ---
Date of service: 09/07/2017 PROCEDURE: CT Abdomen and Pelvis without intravenous contrast HISTORY: left-sided pain COMPARISON: 11/25/2016 CT abdomen and pelvis. TECHNIQUE: Unenhanced study. Neither oral nor intravenous contrast administered. Radiation dose: Total exam DLP = 470.23 mGy-cm. This CT exam was performed using one or more of the following dose reduction techniques: Automated exposure control, adjustment of the mA and/or kV according to patient size, and/or use of iterative reconstruction technique. FINDINGS: LOWER THORAX: Unremarkable. LIVER: Unremarkable. No gross lesion or ductal dilatation. GALLBLADDER AND BILE DUCTS: Unremarkable. PANCREAS: Unremarkable. No gross lesion or ductal dilatation. SPLEEN: Unremarkable. ADRENALS: Unremarkable. No mass. KIDNEYS AND URETERS: Unremarkable. No hydronephrosis. No solid mass. VASCULATURE: Unremarkable. No aortic aneurysm. BOWEL: Unremarkable. No obstruction. No gross mural thickening. APPENDIX: Unremarkable. Normal appendix. PERITONEUM: Unremarkable. No free fluid. No free air. LYMPH NODES: Unremarkable. No enlarged lymph nodes. BLADDER: Unremarkable. REPRODUCTIVE: Unremarkable. BONES: No acute fracture. OTHER FINDINGS: None. IMPRESSION: No significant or acute findings to account for/ related to the clinical presentation. No significant interval change compared to the prior examination(s). Concordant results (preliminary interpretation) provided by [employer]. Procedure Completed: 05:01 Preliminary ([facility]) Report: Dictated and Authenticated: 06:40. Th[place] Final Interpretation: 10:38
== END 2017-09-07 06:59 | disposition home or self-care (01) ==
LOC: H.ER 22:51
DX: K52.9 Noninfective gastroenteritis and colitis, unspecified (principal)
CPT/HCPCS: 74176; 80053; 81003; 81025; 83690; 85025; 96374; 99284; J1885; J2405; J7030

== ENCOUNTER 2017-09-13 23:02 | Emergency (ER) | payer OTHER ==
[2017-09-13 23:03] VITALS: BMI 30.2
[2017-09-13 23:08] VITALS: O2SAT 100
[2017-09-13] MEDS ORDERED: Sodium Chloride 0.9% 1,000 ML IV STA (23:19)
--- NOTE | 2017-09-13 23:22 | ED PDOC ---
HPI: Abdomen Time Seen by Provider: 09/13/17 23:12 Chief Complaint (Nursing): Abdominal Pain Chief Complaint (Provider): abdominal pain History Per: Patient, EMS, Family History/Exam Limitations: no limitations Onset/Duration Of Symptoms: Hrs Current Symptoms Are (Timing): Still Present Additional Complaint(s): 41 y/o female brought in by EMS for evaluation of abdominal pain with associated vomiting x 4 hours. Patient here last week for same. Denies fever, chest pain, shortness of breath, palpitations, changes in bowel movements, urinary symptoms. Past Medical History Reviewed: Historical Data, Nursing Documentation, Vital Signs Vital Signs: Last Vital Signs Temp 98.2 F 09/13/17 23:06 Pulse 100 H 09/13/17 23:06 Resp 20 09/13/17 23:06 BP 160/103 H 09/13/17 23:06 Pulse Ox 100 09/14/17 03:14 - Medical History PMH: Back Problems Denies: Chronic Kidney Disease - Surgical History Surgical History: (x3) - Family History Family History: States: Unknown Family Hx - Immunization History Hx Influenza Vaccination: No - Home Medications Home Medications: Ambulatory Orders Medication Instructions Recorded Ibuprofen [Motrin Tab] 800 mg PO Q8H PRN 11/25/16 metroNIDAZOLE [Flagyl] 500 mg PO Q8 6 Days #18 tab 11/26/16 traMADol [Ultram] 50 mg PO Q6 PRN #10 tab 11/26/16 Dicyclomine [Bentyl] 20 mg PO BID #30 tab 09/07/17 Famotidine [Pepcid] 20 mg PO BID #20 tab 09/07/17 Ondansetron [Zofran] 4 mg PO Q8H #12 tab 09/07/17 Esomeprazole Magnesium [Nexium] 40 mg PO DAILY #15 capsule. 09/14/17 Ondansetron [Zofran] 4 mg PO Q8H PRN #10 tab 09/14/17 - Allergies Allergies/Adverse Reactions: Allergies Allergy/AdvReac Type Severity Reaction Status Date / Time No Known Allergies Allergy Verified 09/13/17 23:04 Review of Systems ROS Statement: Except As Marked, All Systems Reviewed And Found Negative Gastrointestinal: Positive for: Nausea, Vomiting, Abdominal Pain Physical Exam - Reviewed Nursing Documentation Reviewed: Yes Vital Signs Reviewed: Yes - Physical Exam Appears: Positive for: Well, Non-toxic, Uncomfortable Head Exam: Positive for: ATRAUMATIC, NORMAL INSPECTION, NORMOCEPHALIC Skin: Positive for: Normal Color Eye Exam: Positive for: Normal appearance ENT: Positive for: Normal ENT Inspection Cardiovascular/Chest: Positive for: Regular Rate, Rhythm Respiratory: Positive for: Normal Breath Sounds Gastrointestinal/Abdominal: Positive for: Bowel Sounds, Soft, Tenderness ( epigastric, suprapubic) Back: Positive for: Normal Inspection Extremity: Positive for: Normal ROM Neurologic/Psych: Positive for: Alert, Oriented - Laboratory Results Result Diagrams: 09/13/17 23:41 09/13/17 23:41 - ECG O2 Sat by Pulse Oximetry: 100 - Progress ED Course And Treament: assessment: abdominal pain, vomiting plan: cbc cmp lipase urine IV fluids IV pepcid IV zofran IV toradol On re-eval, patient still with pain. IV benadryl, IV phenergan ordered. Will order CT abd/pelvis with IV contrast EXAM: CT Abdomen and Pelvis With Intravenous Contrast CLINICAL HISTORY: The patient is a 41 years female; Pain; Abdominal pain; Generalized; Additional info: Abd pain, vomiting 09/14/2017 1:14 AM TECHNIQUE: Axial computed tomography images of the abdomen and pelvis with intravenous contrast. All CT scans at this facility use at least one of these dose optimization techniques: automated exposure control; mA and/or kV adjustment per patient size (includes targeted exams where dose is matched to clinical indication); or iterative reconstruction. CONTRAST: 90 mL of [id number] administered intravenously. COMPARISON: CT - ABD PELVIS W/O PO OR IV CONT 2017-09-07 05:00 FINDINGS: Lung bases: Unremarkable. No mass. No consolidation. ABDOMEN: Liver: Hepatic steatosis. 1.7 cm enhancing lesion in the right hepatic lobe. Gallbladder and bile ducts: Unremarkable. No calcified stones. No ductal dilation. Pancreas: Unremarkable. No ductal dilation. Spleen: Unremarkable. No splenomegaly. Adrenals: Unremarkable. No mass. Kidneys and ureters: Unremarkable. No solid mass. No hydronephrosis. Stomach and bowel: Scattered diverticulosis of the colon. No evidence of diverticulitis. PELVIS: Appendix: No findings to suggest acute appendicitis. Bladder: Unremarkable. Reproductive: Unremarkable as visualized. ABDOMEN and PELVIS: Intraperitoneal space: Unremarkable. No free air. No significant fluid collection. Bones/joints: No acute fracture. No dislocation. Soft tissues: Unremarkable. Vasculature: Unremarkable. No abdominal aortic aneurysm. Lymph nodes: Unremarkable. No enlarged lymph nodes. IMPRESSION: 1. Hepatic steatosis. 1.7 cm enhancing lesion in the right hepatic lobe. Correlate with ultrasound. 2. Scattered diverticulosis of the colon. No evidence of diverticulitis. 4:00 Patient resting comfortably, states she is feeling better. Tolerating PO Patient educated on findings, discharged with rx Nexium, Zofran Advised diet modification Follow up PMD/GI Return precautions given Disposition - Clinical Impression Clinical Impression: Abdominal pain - Patient ED Disposition Is Patient to be Admitted: No Counseled Patient/Family Regarding: Studies Performed, Diagnosis, Need For Followup, Rx Given - Disposition Referrals: [facility] [Outside] Disposition: Routine/Home Disposition Time: 04:02 Condition: IMPROVED Prescriptions: Esomeprazole Magnesium [Nexium] 40 mg PO DAILY #15 capsule. Ondansetron [Zofran] 4 mg PO Q8H PRN #10 tab PRN Reason: Nausea/Vomiting Instructions: Acute Abdomen (Belly Pain), Adult (DC) Print Language: BELARUSIAN
[2017-09-13 23:44] LABS: BASO % 0.5 % (0.0-2.0); EOS # 0.1 K/uL (0.0-0.7); EOS % 0.6 % (0.0-4.0); HEMOGLOBIN 13.1 g/dL (12.0-16.0); LYMPH # 2.7 K/uL (1.0-4.3); LYMPH % 25.4 % (20.0-40.0); MEAN CELL VOLUME 93.2 fl (81.0-99.0); MEAN CORPUSCULAR HEMOGLOBIN 31.5 pg (27.0-31.0); MEAN CORPUSCULAR HGB CONC 33.8 g/dL (33.0-37.0); MEAN PLATELET VOLUME 8.5 fl (7.2-11.7); MONO # 0.8 K/uL (0.0-0.8); MONO % 7.1 % (0.0-10.0); NEUT # 7.1 K/uL (1.8-7.0); NEUT % 66.4 % (50.0-75.0); RBC 4.15 Mil/uL (3.80-5.20); RED CELL DISTRIBUTION WIDTH 13.2 % (11.5-14.5); WHITE BLOOD COUNT 10.7 K/uL (4.8-10.8)
[2017-09-14] LABS: ALB/GLOB RATIO 1.4 (1.0-2.1); ALBUMIN 4.7 g/dL (3.5-5.0); ALT/SGPT 58 U/L (9-52); AST/SGOT 41 U/L (14-36); BLOOD UREA NITROGEN 16 mg/dl (7-17); CALCIUM 9.4 mg/dL (8.4-10.2); GFR NON-AFRICAN AMERICAN > 60; LIPASE 123 U/L (23-300)
[2017-09-14] MEDS ORDERED: DiphenhydrAMINE 50 mg/ml Inj IVP STA (00:11)
[2017-09-14] MEDS ORDERED: DiphenhydrAMINE 50 mg/ml Inj ONE (00:15)
[2017-09-14] MEDS ORDERED: Promethazine 25MG/50ML NS IVPB ONE (00:30)
[2017-09-14] MEDS ORDERED: Iohexol 300 50 ML ONE (01:30)
[2017-09-14] MEDS ORDERED: Sodium Chloride 0.9% 50 ML IV ONE (01:30)
[2017-09-14 03:04] LABS: SQUAMOUS EPITHIAL 4 /hpf (0-5); URINE BILIRUBIN NEGATIVE (NEGATIVE); URINE BLOOD SMALL (NEGATIVE); URINE CLARITY SLIGHTY-CLOUDY (Clear); URINE COLOR STRAW (YELLOW); URINE GLUCOSE (UA) NEG (Normal); URINE LEUKOCYTE ESTERASE NEG Leu/uL (Negative); URINE PROTEIN NEGATIVE (NEGATIVE); URINE UROBILINOGEN 0.2-1.0 mg/dL (0.2-1.0)
[2017-09-14 04:40] VITALS: BP 151/80; PULSE 56; RESP 18; TEMP 98.9
--- NOTE | 2017-09-14 11:04 | CT ---
Date of service: 09/14/2017 PROCEDURE: CT Abdomen and Pelvis with contrast HISTORY: Abdominal pain and vomiting. COMPARISON: 09/07/2017 CT abdomen and pelvis. 11/25/2016 abdominal ultrasound 11/25/2016 CT abdomen and pelvis. 08/18/2016 MRI abdomen. Summary of relevant findings: 2 cm right hepatic lobe lesion re- identified. TECHNIQUE: Contrast dose: 90 cc Omnipaque 300. Radiation dose: Total exam DLP = 496.93 mGy-cm. This CT exam was performed using one or more of the following dose reduction techniques: Automated exposure control, adjustment of the mA and/or kV according to patient size, and/or use of iterative reconstruction technique. FINDINGS: LOWER THORAX: Unremarkable. LIVER: Hepatomegaly, hepatic steatosis. Contrast-enhancing mass right hepatic lobe finding identified on multiple prior studies and felt to represent benign process likely hemangioma. The mass measures 1.7 x 2 cm. GALLBLADDER AND BILE DUCTS: Unremarkable. PANCREAS: Unremarkable. No gross lesion or ductal dilatation. SPLEEN: Unremarkable. ADRENALS: Unremarkable. No mass. KIDNEYS AND URETERS: Unremarkable. No hydronephrosis. No solid mass. VASCULATURE: Unremarkable. No aortic aneurysm. BOWEL: Diverticulosis without an acute inflammatory component or other associated pathologic process. APPENDIX: Normal appendix. PERITONEUM: Unremarkable. No free fluid. No free air. LYMPH NODES: Unremarkable. No enlarged lymph nodes. BLADDER: Unremarkable. REPRODUCTIVE: Unremarkable. BONES: No acute fracture. OTHER FINDINGS: None. IMPRESSION: No acute findings related to/accounting for the clinical presentation. Additional benign and/or incidental findings described above. No significant interval change compared to the prior examination(s). Concordant results (preliminary interpretation) provided by [employer]. Procedure Completed: 01:49. Preliminary ([employer]) Report: Dictated and Authenticated: 03:05. Final Interpretation: 11:02.
== END 2017-09-14 04:28 | disposition home or self-care (01) ==
LOC: H.ER 23:02
DX: R10.9 Unspecified abdominal pain (principal); K76.0 Fatty (change of) liver, not elsewhere classified; K57.30 Diverticulosis of large intestine without perforation or abscess without bleeding
CPT/HCPCS: 74177; 80053; 81003; 83690; 85025; 87086; 96374; 96375; 99284; J1200; J1885; J2405; J2550; J7030; Q9967

== ENCOUNTER 2018-04-01 06:59 | Emergency (ER) | payer OTHER ==
[2018-04-01 07:12] VITALS: BMI 31.1
[2018-04-01] MEDS ORDERED: Oxycodone/Acetaminophen 5/325 mg Tab PO STA (07:47)
--- NOTE | 2018-04-01 07:50 | ED PDOC ---
Upper Extremity Pain/Injury Time Seen by Provider: 04/01/18 07:19 Chief Complaint (Nursing): Upper Extremity Problem/Injury Chief Complaint (Provider): Upper Extremity Problem/Injury History Per: Patient, Bell Attendant (Voyce: [id number]) History/Exam Limitations: no limitations Onset/Duration Of Symptoms: Other (2 to 3 weeks) Additional Complaint(s): 42 years old female presents to ER for evaluation of left arm pain onset two to three weeks ago. Patient states pain is mostly in elbow area and reports tingling in the first two digits. She is right handed and reports she has been taking Motrin with no relief. Patient denies neck pain. PMD: None provided Past Medical History Reviewed: Historical Data, Nursing Documentation, Vital Signs Vital Signs: Last Vital Signs Temp 98.4 F 04/01/18 07:11 Pulse 68 04/01/18 07:11 Resp 18 04/01/18 07:11 BP 154/84 H 04/01/18 07:11 Pulse Ox 99 04/01/18 07:11 - Medical History PMH: Back Problems Denies: Chronic Kidney Disease - Surgical History Surgical History: (x3) - Family History Family History: States: Unknown Family Hx - Social History Current smoker - smoking cessation education provided: No Alcohol: None Drugs: Denies - Immunization History Hx Influenza Vaccination: No - Home Medications Home Medications: Ambulatory Orders Medication Instructions Recorded RX: Ibuprofen [Motrin Tab] 800 mg PO Q8H PRN 11/25/16 RX: metroNIDAZOLE [Flagyl] 500 mg PO Q8 6 Days #18 tab 11/26/16 RX: traMADol [Ultram] 50 mg PO Q6 PRN #10 tab 11/26/16 Dicyclomine [Bentyl] 20 mg PO BID #30 tab 09/07/17 Famotidine [Pepcid] 20 mg PO BID #20 tab 09/07/17 Ondansetron [Zofran] 4 mg PO Q8H #12 tab 09/07/17 Esomeprazole Magnesium [Nexium] 40 mg PO DAILY #15 capsule. 09/14/17 Ondansetron [Zofran] 4 mg PO Q8H PRN #10 tab 09/14/17 Cyclobenzaprine [Cyclobenzaprine 10 mg PO TID PRN #15 tab 02/01/19 HCl] Naproxen [Naprosyn] 500 mg PO BID PRN #15 tablet 04/01/18 - Allergies Allergies/Adverse Reactions: Allergies Allergy/AdvReac Type Severity Reaction Status Date / Time No Known Allergies Allergy Verified 09/13/17 23:04 Review of Systems ROS Statement: Except As Marked, All Systems Reviewed And Found Negative Musculoskeletal: Positive for: Arm Pain (Left), Hand Pain (tingling to first two digits of left hand). Negative for: Neck Pain Physical Exam - Reviewed Nursing Documentation Reviewed: Yes Vital Signs Reviewed: Yes - Physical Exam Appears: Positive for: In Acute Distress (moderate painful) Head Exam: Positive for: ATRAUMATIC, NORMOCEPHALIC Neck: Positive for: Normal (No c-spine tenderness), Painless ROM, Supple Cardiovascular/Chest: Positive for: Regular Rate, Rhythm. Negative for: Murmur Respiratory: Positive for: Normal Breath Sounds. Negative for: Wheezing Pulses-Radial (L): 2+ Pulses-Radial (R): 2+ Extremity: Positive for: Tenderness (to left shoulder down to fingers). Negative for: Normal ROM (Decreased ROM at left elbow secondary to pain), Other (Lesions) Neurologic/Psych: Positive for: Alert, Oriented (x3) - ECG O2 Sat by Pulse Oximetry: 99 (RA) Pulse Ox Interpretation: Normal Medical Decision Making Medical Decision Making: Time: 745 Initial Impression: Left upper extremity pain Initial Plan: --Urine --Percocet 1 tab PO --Duplex left upper extremity vein US 0812 --Left Elbow X-Ray --Left Shoulder X-Ray 0921 Duplex Left Upper Extremity Vein US FINDINGS: Good compressibility and augmentation are identified as well as normal phasic venous blood flow and grayscale imaging at the left subclavian, axillary, brachial, basilic and cephalic veins. The left internal jugular vein is compressible and exhibits normal phasic blood flow and appears unremarkable under grayscale ultrasonography. No sonographic evidence to suggest deep venous thrombosis left upper extremity. IMPRESSION: No sonographic evidence to suggest deep venous thrombosis left upper extremity. Scribe Attestation: Documented by Sherri Walker, acting as a scribe for Justine Lai MD. Provider Scribe Attestation: All medical record entries made by the Scribe were at my direction and personally dictated by me. I have reviewed the chart and agree that the record accurately reflects my personal performance of the history, physical exam, medical decision making, and the department course for this patient. I have also personally directed, reviewed, and agree with the discharge instructions and disposition. Disposition - Clinical Impression Clinical Impression: Left arm pain - Disposition Referrals: [facility] [Outside] [facility] [Outside] Disposition: Routine/Home Disposition Time: 11:22 Condition: IMPROVED Prescriptions: Cyclobenzaprine [Cyclobenzaprine HCl] 10 mg PO TID PRN #15 tab PRN Reason: Pain Naproxen [Naprosyn] 500 mg PO BID PRN #15 tablet PRN Reason: Pain, Moderate (4-7) Instructions: Muscle and Bone Pain (DC) Forms: [employer] (Chinese) Print Language: SLOVENIAN
--- NOTE | 2018-04-01 10:41 | US ---
Date of service: 04/01/2018 PROCEDURE: LEFT UPPER EXTREMITY VENOUS ULTRASOUND HISTORY: Pain/swelling COMPARISON: None available. TECHNIQUE: Ultrasound of the left upper extremity major deep veins was performed including graded compression and augmentation. FINDINGS: Good compressibility and augmentation are identified as well as normal phasic venous blood flow and grayscale imaging at the left subclavian, axillary, brachial, basilic and cephalic veins. The left internal jugular vein is compressible and exhibits normal phasic blood flow and appears unremarkable under grayscale ultrasonography. No sonographic evidence to suggest deep venous thrombosis left upper extremity. IMPRESSION: No sonographic evidence to suggest deep venous thrombosis left upper extremity.
--- NOTE | 2018-04-01 11:13 | RAD ---
Date of service: 04/01/2018 PROCEDURE: Radiographs of the Left Shoulder HISTORY: Pain. No history of recent/ related trauma provided COMPARISON: No prior. FINDINGS: BONES: Normal. No fracture. JOINTS: Normal. Glenohumeral and acromioclavicular joints preserved. No osteoarthritis. SOFT TISSUES: Normal. OTHER FINDINGS: None. IMPRESSION: Normal radiographs of the left shoulder.
--- NOTE | 2018-04-01 11:32 | RAD ---
Date of service: 04/01/2018 PROCEDURE: Radiographs of the left elbow. HISTORY: Pain. No history of recent/ related trauma provided COMPARISON: No prior. FINDINGS: BONES: Normal. No fracture. JOINTS: Normal. No osteoarthritis. SOFT TISSUES: Normal. JOINT EFFUSION: None. OTHER FINDINGS: None IMPRESSION: Unremarkable radiographs of the left elbow.
[2018-04-01 11:34] VITALS: BP 123/69; PULSE 60; RESP 16; TEMP 97.9
[2018-04-03 17:14] VITALS: O2SAT 99
== END 2018-04-01 11:27 | disposition home or self-care (01) ==
LOC: H.ER 06:59
DX: M79.602 Pain in left arm (principal)
CPT/HCPCS: 73030; 73080; 81025; 93971; 96372; 99285; J1885